=== PATIENT | female | born 1945 | race Two or more races ===

== ENCOUNTER 2022-07-27 09:19 | Outpatient (CLI) | payer OTHER | END 2022-07-27 09:28 | disposition home or self-care (01) | LOC: RAD 09:19 | PROVIDERS: ATTEND Orthopaedic Surgery | DX: M25.561 Pain in right knee (principal); M25.562 Pain in left knee; E03.8 Other specified hypothyroidism; Z68.30 Body mass index [BMI] 30.0-30.9, adult; E78.2 Mixed hyperlipidemia ==